=== PATIENT | male | born 1960 | race Caucasian/White ===

== ENCOUNTER 2020-04-02 05:37 | Inpatient (IN) | payer OTHER ==
[~2020-04-02] VITALS: Ht 175.3 cm; Wt 80.6 kg
[2020-04-02 06:28] LABS: Urine Bacteria NONE SEEN /hpf (None Seen); Urine Blood Negative /uL (Negative); Urine Hyaline Cast FEW /lpf (0 - 2); Urine Mucus FEW (None Seen); Urine Specific Gravity 1.024 (1.001-1.035); Urine WBC <1 /hpf (0 - 3)
[2020-04-02] MEDS ORDERED: SODIUM CHLORIDE 0.9% 1,000 ML IV ONE (07:58)
[2020-04-02] MEDS ORDERED: ASPirin 81 mg TAB PO ONE (08:00)
[2020-04-02 08:10] LABS: Basophils # (auto) 0 10 ^3/uL (0-0.2); Basophils % (auto) 0.8 % (0.0-2.0); Eosinophils # (auto) 0.1 10 ^3/uL (0-0.8); Eosinophils % (auto) 1.8 % (0.0-7.0); Hematocrit 45.4 % (41.0-53.0); Hemoglobin 15.2 g/dL (13.5-17.5); Lymphocytes # (auto) 1.5 10 ^3/uL (0.4-5.4); Lymphocytes % (auto) 32.7 % (10.0-50.0); Mean Corpuscular Hemoglobin 30.8 pg (28.0-32.0); Mean Corpuscular Hgb Conc. 33.4 g/dL (32.0-36.0); Mean Corpuscular Volume 92.3 fL (80.0-100.0); Monocytes # (auto) 0.4 10 ^3/uL (0-1.3); Monocytes % (auto) 7.9 % (0.0-12.0); Neutrophils # (auto) 2.5 10 ^3/uL (1.6-8.6); Neutrophils % (auto) 56.8 % (37.0-80.0); Nucleated Red Blood Cells % 0.1 %; Platelet Count (auto) 205 10^3/uL (140-450); Red Blood Cells 4.92 10^6/uL (4.5-5.90); Red Cell Distribution Width 13.4 % (11.8-14.3); White Blood Cell 4.5 10^3/uL (4.4-10.8)
[2020-04-02 08:25] LABS: Anion Gap 6 (5-15); Blood Urea Nitrogen 19 mg/dL (7-18); Carbon Dioxide 28 mmol/L (21-32); Chloride 107 mmol/L (98-107); Glucose 94 mg/dL (74-106); Magnesium 2.6 mg/dL (1.6-2.6); Potassium 4.4 mmol/L (3.5-5.1); Sodium 141 mmol/L (136-145)
[2020-04-02 08:31] LABS: Alanine Aminotransferase 34 U/L (16-61); Alkaline Phosphatase 46 U/L (45-117); Aspartate Aminotransferase 22 U/L (15-37); BUN/Creatinine Ratio 14.7; Bilirubin, Total 0.6 mg/dL (0.2-1.0); GFR African American 73 mL/min; GFR Non-African American 61 mL/min; Total Protein 7.1 g/dL (6.4-8.2)
[2020-04-02 10:04] LABS: Urine Bacteria NONE SEEN /hpf (None Seen); Urine Blood Negative /uL (Negative); Urine Mucus FEW (None Seen); Urine WBC 1 /hpf (0 - 3)
[2020-04-02 10:42] LABS: INR 1.03 (0.9-1.15); Partial Thromboplastin Time 25.8 sec (23.64-32.05)
[2020-04-02] MEDS ORDERED: NITROGLYCERIN 0.4 MG SL TAB SL PRN (12:30)
[2020-04-02] MEDS ORDERED: MORPHINE SULF INJ 2 MG/ML SYRINGE 1ML IV PRN (12:30)
[2020-04-02] MEDS ORDERED: ACETAMINOPHEN 500 MG TAB PO PRN (13:00)
[2020-04-02] MEDS ORDERED: LACTULOSE 20Gm/30ML SOLN PO PRN (13:00)
[2020-04-02] MEDS ORDERED: traMADol HCL 50 MG TAB PO PRN (13:00)
[2020-04-02] MEDS ORDERED: PROMETHAZINE HCL 25 MG/ML 1ML IV PRN (13:00)
[2020-04-02] MEDS: SODIUM CHLORIDE 0.9% 1,000 ML IV SCH ×2 (13:12→20:33)
[2020-04-02 19:30] VITALS: BP 133/90
[2020-04-02 19:35] VITALS: BP 133/90
[2020-04-02 22:00] VITALS: BP 138/71
[2020-04-02] MEDS ORDERED: ATORVASTATIN 20 MG TAB PO SCH (22:00)
[2020-04-03] MEDS ORDERED: PNEUMOCOCCAL VACC POLYS 25 MCG/0.5 ML VIAL IM ONE (02:45)
[2020-04-03 05:09] VITALS: BP 105/67
[2020-04-03] MEDS: SODIUM CHLORIDE 0.9% 1,000 ML IV SCH (06:01)
[2020-04-03 06:22] LABS: Cholesterol 212 mg/dL (< 200); HDL Cholesterol 45 mg/dL (40-59); LDL Cholesterol 133 mg/dL (< 100); Triglycerides 157 mg/dL (< 150)
[2020-04-03 09:00] VITALS: BP 120/70
[2020-04-03] MEDS: ASPirin 81 mg TAB PO SCH (09:55)
[2020-04-03] MEDS ORDERED: MULT-222 PO (09:59)
[2020-04-03] MEDS ORDERED: ENOXAPARIN SOD 40 MG/0.4 ML SYRINGE SC SCH (10:00)
[2020-04-03] MEDS ORDERED: LISINOPRIL 10 MG TAB PO SCH (10:00)
[2020-04-03] MEDS ORDERED: ISOSORBIDE MONONITRATE ER 60 MG TAB PO SCH (10:00)
[2020-04-03] MEDS ORDERED: ADENOSINE 66 MG in GIVE UN-DILUTED 0 ML IV STA (10:03)
[2020-04-03 11:39] VITALS: BP 134/74
[2020-04-03 13:00] VITALS: BP 123/61
[2020-04-03 17:00] VITALS: BP 116/62
[2020-04-03 22:00] VITALS: BP 114/61
[2020-04-03] MEDS ORDERED: ATORVASTATIN 20 MG TAB PO SCH (22:00)
[2020-04-04 05:00] VITALS: BP 110/62
[2020-04-04 09:00] VITALS: BP 117/63
[2020-04-04] MEDS: ASPirin 81 mg TAB PO SCH (10:08)
== END 2020-04-04 11:34 | disposition left against medical advice (07) | DRG 313 ==
LOC: ER 05:37 → TELE 05:38 → TELE-WESTW 19:50
PROVIDERS: ADMIT Internal Medicine; ATTEND Internal Medicine
DX: R07.89 Other chest pain (principal); E66.3 Overweight; E78.5 Hyperlipidemia, unspecified; Z80.51 Family history of malignant neoplasm of kidney; R00.1 Bradycardia, unspecified; Z68.26 Body mass index [BMI] 26.0-26.9, adult; Z53.29 Procedure and treatment not carried out because of patient's decision for other reasons
CPT/HCPCS: 36415; 71046; 78452; 80053; 80061; 81001; 82550; 83735; 84443; 84484; 85025; 85379; 85610; 85652; 85730; 86141; 93005; 93017; 93306; 96360; G0378; J0153